=== PATIENT | female | born 2000 | race Asian ===

== ENCOUNTER 2023-02-10 01:33 | Emergency (ER) | payer OTHER ==
[~2023-02-10] VITALS: Ht 154.9 cm; Wt 61.0 kg
[2023-02-10 01:41] VITALS: O2SAT 99
[2023-02-10 02:27] LABS: CLARITY URINE CLOUDY (CLEAR); COLOR URINE YELLOW (YELLOW); KETONES URINE NEGATIVE (NEGATIVE); LEUKOCYTE ESTERASE URINE NEGATIVE (NEGATIVE); NITRITE URINE NEGATIVE (NEGATIVE); OCCULT BLOOD URINE NEGATIVE (NEGATIVE); PH URINE 5.5 (4.5-8.0); PROTEIN URINE TRACE (NEGATIVE); SPECIFIC GRAVITY URINE 1.035 (1.005-1.030)
[2023-02-10 03:12] LABS: BASOPHILS % 0.3 % (0.0-2.0); EOSINOPHILS % 1.7 % (0.0-5.0); HEMATOCRIT. 36.1 % (36.0-48.0); LYMPHOCYTES % 42.3 % (20.0-50.0); MEAN CORPUSCULAR HEMOGLOBIN 26.5 pg (28.0-32.0); MEAN CORPUSCULAR VOLUME 79.4 fL (81.0-99.0); MONOCYTES % 5.1 % (2.0-8.0); NEUTROPHILS % 50.6 % (40.0-76.0); PLATELET 234 x1000/uL (130-400); RED BLOOD CELL COUNT 4.55 mill/uL (4.2-5.4); RED CELL DISTRIBUTION WIDTH 15.1 % (11.6-14.6)
[2023-02-10 03:20] LABS: CHLORIDE 109 mEq/L (98-107)
[2023-02-10 03:45] VITALS: BP 133/84
[2023-02-10] MEDS ORDERED: KETOROLAC 30MG/ML VIAL IM ONE (03:45)
[2023-02-10] MEDS ORDERED: IBUP-2028 MT (04:17)
[2023-02-10] MEDS ORDERED: DOXY100T2 MT (04:17)
[2023-02-10] MEDS ORDERED: CEFTRIAXONE SODIUM 500 MG/VIAL IM ONE (04:30)
[2023-02-10 04:34] VITALS: PULSE 91; RESP 18; TEMP 98.2
== END 2023-02-10 04:30 | disposition home or self-care (01) ==
LOC: ER 02:35
DX: S80.01XA Contusion of right knee, initial encounter (principal); R10.9 Unspecified abdominal pain; X58.XXXA Exposure to other specified factors, initial encounter; Y93.89 Activity, other specified; Y92.89 Other specified places as the place of occurrence of the external cause; Y99.8 Other external cause status
CPT/HCPCS: 80053; 81003; 81025; 83690; 85025; 36415; 96372; 99284; J0696; J1885; Z7610